=== PATIENT | female | born 1985 | race Caucasian/White ===

== ENCOUNTER → 2021-12-17 10:54 | Outpatient (BNVA) | payer MEDICAID, SELFPAY | PROVIDERS: Visit Provider Nurse Practitioner | DX: E05.90 Thyrotoxicosis, unspecified without thyrotoxic crisis or storm (principal); E03.9 Hypothyroidism, unspecified; M25.50 Pain in unspecified joint; E61.1 Iron deficiency; D51.9 Vitamin B12 deficiency anemia, unspecified; R87.619 Unspecified abnormal cytological findings in specimens from cervix uteri | CPT/HCPCS: 80053; 81003; 83550; 84439; 84443; 84481; 85025; 85651; 86140; 86800 ==

== ENCOUNTER → 2021-12-31 15:21 | Outpatient (BNVA) | payer MEDICAID, SELFPAY | PROVIDERS: Visit Provider Obstetrics & Gynecology | DX: R87.619 Unspecified abnormal cytological findings in specimens from cervix uteri (principal) | CPT/HCPCS: 88305 ==

== ENCOUNTER 2022-01-07 15:40 | Emergency (ER) | payer MEDICAID, SELFPAY ==
--- NOTE | 2022-01-07 15:47 | PC.NURSE ---
CALLED TO LOBBY NO ANSWER
--- NOTE | 2022-01-07 16:05 | ECG_ITS ---
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 Measurements Intervals [place] Rate: 64 P: 51 WA: 145 QRS: 52 QRSD: 97 T: 52 QT: 370 QTc: 384 Interpretive Statements SINUS RHYTHM INTERPRETATION BASED ON A DEFAULT AGE OF 40 YEARS No previous ECG available for comparison Electronically Signed On 01-08-2022 7:09:30 CDT by Hilario Miller M.D. [id number]
[2022-01-07 16:06] VITALS: BP 104/68; PULSE 64; RESP 16; TEMP 37.2; O2SAT 98; BMI 31.9
[2022-01-07 17:31] LABS: Add Urine Microscopic? NO; Charge for UA Resulting for Rev
[2022-01-07 17:38] LABS: Basophils % 0.3 %; Eosinophils # 0.1 10^3/uL (0.0-0.8); Eosinophils % 1.2 %; Hematocrit 39.8 % (37.0-47.0); Hemoglobin 13.2 g/dL (11.5-15.3); Lymphocytes # 1.5 10^3/uL (0.8-4.8); Lymphocytes % 24.7 %; Mean Corpuscular HGB Conc 33.2 g/dL (30.0-36.0); Mean Corpuscular Hemoglobin 32.6 pg (28.0-34.0); Mean Corpuscular Volume 98.3 fl (81-99); Mean Platelet Volume 10.3 fL (7.4-10.4); Monocytes # 0.5 10^3/uL (0.2-0.9); Monocytes % 8.3 %; Neutrophils # 3.84 10^3/uL (1.8-7.7); Neutrophils % 65.3 %; Nucleated Red Blood Cells % 0 %; Platelet Count 204 10^3/cmm (130-400); Red Blood Count 4.05 10^6/uL (4.1-5.3); Red Cell Distribution Width 12.1 % (12.1-15.1); White Blood Count 5.9 10^3/uL (4.0-10.0)
[2022-01-07 17:42] LABS: Bilirubin Urine Neg (Negative); Blood Urine Neg (Negative); Glucose Urine UA Norm (Normal); Ketones Urine Negative (Negative); Leukocyte Esterase Urine Negative (Negative); Nitrate Urine Negative (Negative); Protein Urine Neg (Negative); Specific Gravity, Urine 1.015 (1.005-1.030); Urine Appearance Clear (CLEAR); Urine Color Yellow (Yellow); Urobilinogen Urine Norm (Negative); pH Urine 7 (5-7)
[2022-01-07 18:21] LABS: Troponin(5th) Baseline 6 ng/L (0-10)
[2022-01-07 18:27] LABS: Anion Gap 12.1 (5-19); Blood Urea Nitrogen 11 mg/dL (6-20); Calcium 9.5 mg/dL (8.5-10.5); Carbon Dioxide 28 mmol/L (22-29); Chloride 101 mmol/L (98-107); Glomerular Filtration Rate 140.4 mL/min (90-130); Glucose 83 mg/dL (65-115); Osmolality Calculated 283 mOsm/kg (285-295); Potassium 4.1 mmol/L (3.5-5.1); Sodium 137 mmol/L (136-145); Thyroid Stimulating Hormone 1.92 uIU/mL (0.27-4.20)
[2022-01-07 20:55] LABS: Free T4 Free Thyroxine 0.88 ng/dL (0.82-1.77)
== END 2022-01-07 18:04 | disposition left against medical advice (07) ==
PROVIDERS: Emergency Medicine; Emergency Provider Family Medicine
DX: Z53.21 Procedure and treatment not carried out due to patient leaving prior to being seen by health care provider (principal)
CPT/HCPCS: 80048; 81003; 84439; 84443; 84484; 85025; 93005

== ENCOUNTER → 2022-02-13 10:45 | Outpatient (BNVA) | payer MEDICAID, SELFPAY | PROVIDERS: Visit Provider Nurse Practitioner | DX: E06.3 Autoimmune thyroiditis (principal); E55.9 Vitamin D deficiency, unspecified; D51.9 Vitamin B12 deficiency anemia, unspecified | CPT/HCPCS: 82306; 82607; 84439; 84443; 84481 ==

== ENCOUNTER → 2022-03-15 11:53 | Outpatient (BNVA) | payer MEDICAID, SELFPAY | PROVIDERS: PCP Nurse Practitioner Family; Visit Provider Nurse Practitioner Family | DX: M25.571 Pain in right ankle and joints of right foot (principal); M79.671 Pain in right foot; S82.141A Displaced bicondylar fracture of right tibia, initial encounter for closed fracture; X58.XXXA Exposure to other specified factors, initial encounter; M25.561 Pain in right knee | CPT/HCPCS: 73562; 73610; 73630 ==

== ENCOUNTER → 2022-04-24 14:30 | Outpatient (BNVA) | payer MEDICAID, SELFPAY | PROVIDERS: PCP Nurse Practitioner Family; Visit Provider Obstetrics & Gynecology | DX: Z01.419 Encounter for gynecological examination (general) (routine) without abnormal findings (principal) | CPT/HCPCS: 87624 ==

== ENCOUNTER → 2022-05-13 13:54 | Outpatient (BNVA) | payer MEDICAID, SELFPAY | PROVIDERS: PCP Nurse Practitioner Family; Visit Provider Nurse Practitioner | DX: E06.3 Autoimmune thyroiditis (principal); E55.9 Vitamin D deficiency, unspecified; Z28.21 Immunization not carried out because of patient refusal | CPT/HCPCS: 82306; 84443 ==

== ENCOUNTER 2022-05-28 12:17 | Outpatient (CLI) | payer MEDICAID, SELFPAY ==
--- NOTE | 2022-05-28 12:15 | USCV_ITS ---
Lesly Yung Age: 37 Gender: F : 1985 Exam Date: 05/28/2022 13:02 Ordering Phys: Meli Headley MD ([email or web address]) Technologist: WILLIAM [place] [facility] [place]: CHEST PAIN WITH PALPITATIONS BP: 120 / 68 HR: 63 Rhythm: Sinus Technical Quality: Adequate MEASUREMENTS (Male / Female) Normal Values 2D ECHO LVOT Diameter 2.0 cm LV Ejection Fraction MOD 2C 67.0 % LV Ejection Fraction 2C AL 68.6 % LA Diameter 2.7 cm LA Width 2.7 cm LA Height 3.8 cm RA Width 3.0 cm RA Height 4.6 cm Aorta at Sinotubular Diameter 2.4 cm IVC Diameter 1.4 cm M-MODE Aortic Annulus Diameter 2.5 cm LA Ao Ratio MM 1.0 MV E Point Septal Separation 0.4 cm DOPPLER AV Peak Velocity 132.0 cm/s LVOT Peak Velocity 110.0 cm/s AV Area Cont Eq vti 2.3 cm squared AV Area Cont Eq pk 2.6 cm squared MV Peak Velocity 129.0 cm/s MV Area PHT 3.9 cm squared Mitral E to A Ratio 1.4 MV E' Velocity 58.0 cm/s Mitral E to MV E' Ratio 6.8 Mitral E to LV E' Lateral Ratio 6.2 Mitral E to LV E' Septal Ratio 7.6 TR Peak Velocity 213.4 cm/s TR Peak Gradient 18.2 mmHg TR Mean Velocity 167.2 cm/s TR Mean Gradient 11.5 mmHg TR Velocity Time Integral 64.1 cm TV Peak E Velocity 56.0 cm/s Right Atrial Pressure 3.0 mmHg Pulmonary Artery Systolic Pressu 21.2 mmHg PV Peak Velocity 109.0 cm/s RV Acceleration Time 0.2 s RV Ejection Time 0.3 s RV AcT/ET 0.5 FINDINGS Left Ventricle Normal left ventricular size, systolic function and wall thickness, with no regional wall motion abnormalities. Left ventricular ejection fraction is estimated at 65 %. Normal diastolic function. Right Ventricle Normal right ventricular size and systolic function. Right ventricular systolic pressure 23 mmHg. Right Atrium Normal right atrial size. Left Atrium Normal left atrial size. Mitral Valve Mildly thickened mitral valve. Bowing of bilateral mitral leaflet without any prolapse. No mitral valve stenosis. No significant mitral valve regurgitation. Aortic Valve Structurally normal trileaflet aortic valve. No aortic valve stenosis. No aortic valve regurgitation. Tricuspid Valve Structurally normal tricuspid valve. No tricuspid valve stenosis. Mild tricuspid valve regurgitation. Pulmonic Valve Structurally normal pulmonic valve. No pulmonary valve stenosis. No pulmonary valve regurgitation. Pericardium No pericardial effusion. Aorta Normal size aortic root and proximal ascending aorta. IVC Normal IVC dimension with >50% respiratory change of the inferior vena cava. CONCLUSIONS 1. Normal left ventricular size, systolic function and wall thickness, with no regional wall motion abnormalities. Left ventricular ejection fraction is estimated at 65 %. Normal diastolic function. 2. Mild tricuspid valve regurgitation. 3. Bowing of bilateral mitral leaflet. No significant mitral valve regurgitation. 4. No prior similar studies to compare. Meli Headley MD (Electronically Signed) Final Date: 31 May 2022 16:13 S
== END 2022-05-28 12:18 | disposition home or self-care (01) ==
LOC: RAD 12:19
PROVIDERS: PCP Nurse Practitioner; Visit Provider Internal Medicine Cardiovascular Disease
DX: R07.9 Chest pain, unspecified (principal); R00.2 Palpitations; I08.1 Rheumatic disorders of both mitral and tricuspid valves
CPT/HCPCS: 93306

== ENCOUNTER 2022-06-07 12:54 | Outpatient (CLI) | payer MEDICAID, SELFPAY ==
--- NOTE | 2022-06-07 | ECG_ITS ---
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 Interpretive Statements NAME OF STUDY: TREADMILL STRESS TEST INDICATION: Chest Pain Baseline blood pressure of 107/81 mm Hg, heart rate of 70 beats per minute. EKG showed normal sinus rhythm with normal ST-Ts. ??? The patient exercised for 7 minutes and 2 seconds on a [standard Pascual protocol]. Patient attained a maximum heart rate of 165 beats per minute( 89 % of the maximum predicted heart rate) with a blood pressure at the peak exercise of of 261/95 mm Hg. The EKG at the peak exercise revealed sinus tachycardia with no significant ST and T wave changes. Patient did not have any chest pain or any significant arrhythmis with the exercise. The study was terminated due to maximal effort. During the recovery phase, there were no new changes. ??? Blood pressure at the end of the recovery phase was 135/83 mm Hg with a heart rate of 92 beats per minute. ??? CONCLUSION: 1. Normal EKG response to treadmill exercise. 2. No exercise-induced chest pain or cardiac arrhythmia. 3. Good exercise tolerance, attained a maximum of 10.2 METs. 4. Baseline normal blood pressure with hypertensive response to exercise. Electronically Signed On 06-15-2022 8:30:22 COUNTER ATTENDANT by Meli Headley M.D. [id number]
[2022-06-07 13:16] VITALS: BMI 30.9
[2022-06-07 13:42] VITALS: BP 135/83; PULSE 94
== END 2022-06-07 12:55 | disposition home or self-care (01) ==
LOC: CDL 12:55
PROVIDERS: PCP Nurse Practitioner; Visit Provider Internal Medicine Cardiovascular Disease
DX: R07.9 Chest pain, unspecified (principal)
CPT/HCPCS: 93017

== ENCOUNTER 2022-06-18 11:14 | Outpatient (CLI) | payer MEDICAID, SELFPAY ==
--- NOTE | 2022-06-18 11:45 | MR_ITS ---
WS: [id number] MRI RIGHT KNEE HISTORY: pain COMPARISON: RIGHT knee radiograph 03/15/2022 Anterior cruciate ligament: Loss of the normal signal in the ACL. The ACL is thinned and of intermedi ate signal centrally. There is fluid in the mid body of the distal ACL. Although no full-thickness te ar there is probably at least a partial tear. Posterior cruciate ligament: Intact. Medial collateral ligament: Intact. Posterior lateral corner structures: Intact. Medial menisci: Intact. Normal signal, size and shape. Lateral meniscus: Intact. Normal signal, size and shape. Extensor mechanism: Distal quadriceps tendon and patellar tendons are intact. Fluid and soft tissue: No joint effusion. No Castaneda's cyst. Osseous and articular structures: Patellofemoral compartment: Normal. Medial compartment: No significant compartment. There is an osteochondral lesion with bone fragment m easuring 10 x 9 mm involving the posterior medial tibial plateau. There is mild elevation of the bone fragment causing distortion of the posterior medial meniscus. No evidence for acute marrow edema. Th is does not appear to be an acute osteochondral lesion. Lateral compartment: Negative. MR/MR knee RT wo con* [id number] IMPRESSION: 1. Chronic appearing 10 x 9 mm osteochondral lesion with mild displacement fro m the posterior medial tibial plateau. 2. Mild thinning of the ACL. No full-thickness tear. There is a small amount o f fluid in the distal ACL suggesting intrasubstance tear. 3. No meniscal tear identified.
== END 2022-06-18 11:15 | disposition home or self-care (01) ==
LOC: RAD 11:16
PROVIDERS: PCP Nurse Practitioner; Visit Provider Orthopaedic Surgery
DX: M25.561 Pain in right knee (principal)
CPT/HCPCS: 73721

== ENCOUNTER → 2022-07-22 16:43 | Outpatient (BNVA) | payer MEDICAID, SELFPAY | PROVIDERS: PCP Nurse Practitioner; Visit Provider Nurse Practitioner Family | DX: F41.8 Other specified anxiety disorders (principal); E06.3 Autoimmune thyroiditis; M25.531 Pain in right wrist; W19.XXXA Unspecified fall, initial encounter; Y92.009 Unspecified place in unspecified non-institutional (private) residence as the place of occurrence of the external cause | CPT/HCPCS: 73110; 80053; 80061; 84443 ==

== ENCOUNTER → 2022-08-05 15:38 | Outpatient (BNVA) | payer MEDICAID, SELFPAY | PROVIDERS: PCP Nurse Practitioner; Visit Provider Nurse Practitioner Family | DX: R07.9 Chest pain, unspecified (principal) | CPT/HCPCS: 80048 ==

== ENCOUNTER → 2022-08-20 14:56 | Outpatient (BNVA) | payer MEDICAID, SELFPAY | PROVIDERS: PCP Nurse Practitioner; Visit Provider Nurse Practitioner Family | DX: F31.9 Bipolar disorder, unspecified (principal); E06.3 Autoimmune thyroiditis; F41.8 Other specified anxiety disorders; M62.838 Other muscle spasm | CPT/HCPCS: 80053 ==

== ENCOUNTER 2022-08-22 12:26 | Outpatient (CLI) | payer MEDICAID, SELFPAY ==
--- NOTE | 2022-08-22 13:00 | US_ITS ---
WS: [id number] THYROID ULTRASOUND HISTORY: mitchell's thyroiditis COMPARISON: None available. Right lobe: 1.5 cm x 1.5 cm x 4.4 cm (w x ap x l). Volume: 5.0 cm3. Normal size gland but there is mild coarsened echotexture and increased vascularity. No nodules are i dentified. Small RIGHT submandibular lymph nodes are normal. Left lobe: 1.7 cm x 1.2 cm x 4.3 cm (w x ap x l). Volume: 4.6 cm3. Normal size gland with mild coarsened echotexture. Slight increased vascularity. Benign cervical erickson n lymph nodes. Isthmus: 0.4 cm. US/US thyroid [id number] IMPRESSION: 1. Mildly coarse echotexture and increased vascularity can be seen with Hashim evan's thyroiditis. 2. No nodules are identified.
== END 2022-08-22 12:27 | disposition home or self-care (01) ==
LOC: RAD 12:28
PROVIDERS: PCP Nurse Practitioner Family; Visit Provider Nurse Practitioner Family
DX: E06.3 Autoimmune thyroiditis (principal)
CPT/HCPCS: 76536

== ENCOUNTER 2022-09-16 08:44 | Outpatient (CLI) | payer MEDICAID, SELFPAY ==
--- NOTE | 2022-09-16 08:57 | XR_ITS ---
WS: [id number] EXAMINATION: XR cervical spine 3V* [id number] Cervical spine 3 views REASON FOR EXAM: Abnormal nerve conduction study paresthesia right upper ext COMPARISON: None available. FINDINGS: There is no sign of acute fracture or subluxation. Vertebral body heights and intervertebral disc sp aces are maintained. The cervical bony alignment and osseous densities appear normal. There is no p revertebral soft tissue change. Small bilateral cervical ribs. XR/XR cervical spine 3V* [id number] IMPRESSION: No acute osseous abnormality.
== END 2022-09-16 08:45 | disposition home or self-care (01) ==
LOC: RAD 08:45
PROVIDERS: PCP Nurse Practitioner Family; Visit Provider Nurse Practitioner Family
DX: R20.2 Paresthesia of skin (principal); R94.131 Abnormal electromyogram [EMG]
CPT/HCPCS: 72040

== ENCOUNTER → 2022-10-28 14:00 | Outpatient (BNVA) | payer MEDICAID, SELFPAY | PROVIDERS: PCP Nurse Practitioner Family; Visit Provider Obstetrics & Gynecology | DX: Z01.419 Encounter for gynecological examination (general) (routine) without abnormal findings (principal) | CPT/HCPCS: 87624 ==

== ENCOUNTER → 2022-10-29 08:15 | Outpatient (BNVA) | payer MEDICAID, SELFPAY | PROVIDERS: PCP Nurse Practitioner Family; Visit Provider Obstetrics & Gynecology | DX: R87.619 Unspecified abnormal cytological findings in specimens from cervix uteri (principal) | CPT/HCPCS: 88305 ==

== ENCOUNTER → 2022-11-26 13:41 | Outpatient (BNVA) | payer MEDICAID, SELFPAY | PROVIDERS: PCP Nurse Practitioner Family; Visit Provider Obstetrics & Gynecology | DX: N87.9 Dysplasia of cervix uteri, unspecified (principal); N93.9 Abnormal uterine and vaginal bleeding, unspecified; R19.00 Intra-abdominal and pelvic swelling, mass and lump, unspecified site | CPT/HCPCS: 76830 ==

== ENCOUNTER 2022-12-11 07:55 | Outpatient (CLI) | payer MEDICAID, SELFPAY ==
--- NOTE | 2022-12-11 08:45 | MR_ITS ---
WS: [id number] MRI BRAIN WITHOUT CONTRAST HISTORY: G43.909 - Migraine, unspecified, not intractable, without... COMPARISON: None available. TECHNIQUE: Diffusion imaging, multiplanar T1, T2 and FLAIR imaging obtained. Patient refused IV contrast. No evidence for acute infarct or hemorrhage. Suero-white matter differentiation is normal. No prior infarct. There are several subcortical and white matter tiny foci of increased T2 and FLAIR signal throughout the white matter. Typically seen for a patient of this age. No associated hemorrhag e. No edema. These tiny foci of increased signal predominantly in the frontal and parietal lobes. Ventricles and extra-axial spaces are normal. No inferior displacement of cerebellar tonsils. The sella turcica and pituitary gland are unremarkabl e. Dural venous sinuses and [place] demonstrate no abnormality on this unenhanced studies. Norm al flow voids. Paranasal sinuses: Very minimal mucoperiosteal thickening. No air-fluid levels. Mastoid air cells: Normal. Calvarium and scalp: Intact. MR/MR head wo con* [id number] IMPRESSION: 1. No acute infarct or hemorrhage. 2. Numerous T2 and FLAIR signal hyperintensities within the white matter, pred ominantly frontal lobes. More than typically seen for a patient of this age. Th jenny are nonspecific but can be seen with migraines, hypertension, small vessel ischemic disease, smoking and diabetes.
--- NOTE | 2022-12-11 11:15 | USCV_ITS ---
LeslyYung Age: 37 Gender: F : 1985 Exam Date: 12/11/2022 08:19 Ordering Phys: Diana Reynaga MD Technologist: HUGO Exam Location: [facility] – [place] Indication: MIGRAINES Risk Factors: Previous Vascular Surgery: Right Brachial BP: / Left Brachial BP: / Right Left Velocity (cm/s) Spectral Plaque Velocity (cm/s) Spectral Plaque Syst/Diast Broadening Syst/Diast Broadening 81.50/ 26.90 Prox CCA 82.00 / 29.90 62.50/ 18.70 Mid CCA 88.90 / 35.00 67.10/ 26.60 Distal CCA 70.10 / 27.30 48.60/ 20.30 Prox ICA 73.00 / 34.80 68.40/ 32.20 Mid ICA 82.20 / 40.80 77.60/ 41.40 Distal ICA 77.60 / 36.80 50.10 ECA 64.40 0.95 ICA/CCA 0.92 Antegrade Vertebral Antegrade 60.50/ 21.70 cm/s 44.00/ 16.40 cm/s Tri Subclavian Tri 117.0 128.8 0 0 CONCLUSIONS Right ICA stenosis <50%. Left ICA stenosis <50%. Normal antegrade Doppler flow noted in the right vertebral artery. Normal antegrade Doppler flow noted in the left vertebral artery. Joesph Slade MD (Electronically Signed) Final Date: 11 December 2022 10:51 S
== END 2022-12-11 07:56 | disposition home or self-care (01) ==
PROVIDERS: PCP Nurse Practitioner Family; Visit Provider Psychiatry & Neurology Neurology
DX: G43.909 Migraine, unspecified, not intractable, without status migrainosus (principal); M62.838 Other muscle spasm; W19.XXXA Unspecified fall, initial encounter; Y92.009 Unspecified place in unspecified non-institutional (private) residence as the place of occurrence of the external cause; I65.23 Occlusion and stenosis of bilateral carotid arteries
CPT/HCPCS: 70551; 93880

== ENCOUNTER → 2022-12-13 11:58 | Outpatient (BNVA) | payer MEDICAID, SELFPAY | PROVIDERS: PCP Nurse Practitioner Family; Visit Provider Nurse Practitioner Family | DX: F41.8 Other specified anxiety disorders (principal); E61.1 Iron deficiency; D51.9 Vitamin B12 deficiency anemia, unspecified; E55.9 Vitamin D deficiency, unspecified; Z13.220 Encounter for screening for lipoid disorders; W57.XXXA Bitten or stung by nonvenomous insect and other nonvenomous arthropods, initial encounter | CPT/HCPCS: 80053; 80061; 83550; 86618; 86666; 86757 ==

== ENCOUNTER 2022-12-24 10:44 | Day surgery (SDC) | payer MEDICAID, SELFPAY ==
[2022-12-23 10:42] VITALS: BMI 29.0
[2022-12-24] VITALS (9 sets, daily range): BP systolic 102–115; BP diastolic 10–90; PULSE 44–66; RESP 16–18; TEMP 36.1; O2SAT 97–100
[2022-12-24 11:06] LABS: OR HCG Qualitative Urine Negative (Negative)
[2022-12-24] MEDS: sodium chloride 0.9% 1,000 ML 30 ML IV (11:17)
--- NOTE | 2022-12-24 11:22 | W.PM.OPSUD ---
Surgery/Procedure H&P Update DATE OF PROCEDURE: December 24, 2022 DATE H&P PERFORMED: 12/19/22 H&P UPDATE INFORMATION: I have reviewed H&P completed within last 30 days, I have examined patient prior to procedure and No changes to prior documentation PREOP DIAGNOSIS: uterine mass, history of abnormal pap PLANNED PROCEDURE: Operation Date: 12/24/22 12:20 Proposed Procedures p Hysteroscopy, dilation and curettage with Myosure [id number], N85.8(Not Applicable) - Stephanie Horner MD s Dilation And Curettage (D&C)(Not Applicable) - Stephanie Horner MD Related Problem List Diagnoses (1) Uterine mass:
[2022-12-24] MEDS: scopolamine 1.5 Patch 1 PATCH TRANSDERMA (11:28)
--- NOTE | 2022-12-24 12:38 | P.ANESASSM_ITS ---
Pre-Anesthetic Assessment Height/Weight: Height 1.64 m Weight 78.018 kg O2 Del Method Room Air 12/24/22 11:10 Preop Diagnosis: uterine mass, history of abnormal pap Operation Date: 12/24/22 12:20 Proposed Procedures p Hysteroscopy, dilation and curettage with Myosure [id number], N85.8(Not Applicable) - Stephanie Horner MD s Dilation And Curettage (D&C)(Not Applicable) - Stephanie Horner MD Familial anesthetic complications: none Was Beta Patrick taken within 24 hours: N/A Was Clonidine taken within 24 hours: N/A Last intake: Intake Last Liquid Date 12/24/22 Last Liquid Time 01:00 Last Solid Date 12/24/22 Last Solid Time 01:00 Social No alcohol and No tobacco Exam alert, oriented x 3, clear to auscultation bilaterally and regular rate & rhythm Airway Submandibular: within normal limits Cervical ROM: within normal limits Mallampati: Class II Dentition: full CV/HEM Anemia Metabolic Thyroid Disease Neuropsych Anxiety, Depression and Headache Anesthetic Plan ASA status: 3 Anesthesia: General Medications/Allergies Home Medications Medication Instructions Recorded Confirmed Last Taken Type quetiapine 50 mg tablet 50 mg PO .qhs 30 days #30 tabs 11/28/22 12/23/22 Unknown Rx rimegepant 75 mg disintegrating 75 mg PO .every other day #60 tabs 11/28/22 12/23/22 12/09/22 Rx tablet (Nurtec ODT) cyanocobalamin (vitamin B-12) 10,000 mcg (10 mL) IM .monthly #10 12/02/22 12/23/22 12/09/22 Rx 1,000 mcg/mL injection solution mL ergocalciferol (vitamin D2) 1,250 1,250 mcg PO .weekly #4 caps 12/13/22 12/23/22 12/23/22 Rx mcg (50,000 unit) capsule magnesium oxide 400 mg PO BID 90 days #180 tabs 12/13/22 12/23/22 12/23/22 Rx thyroid (pork) 15 mg tablet 15 mg PO DAILY 30 days #30 tabs 12/13/22 12/23/22 12/23/22 Rx ([place] Thyroid) Allergies Allergy/AdvReac Type Severity Reaction Status Date / Time Bleach (Sodium Hypochlorite) Allergy Intermediate ALGY-Hives Verified 12/23/22 10:40 topiramate AdvReac Unknown Verified 12/23/22 10:40 maxalt AdvReac Severe ADR-Agitate Uncoded 12/19/22 13:09 d Current Medications Generic Name Dose Route Start Last Admin Trade Name Freq PRN Reason Stop Dose Admin Sodium Chloride 1,000 mls @ 30 mls/hr 12/24/22 11:00 12/24/22 11:17 Sodium Chloride 0.9% IV 12/25/22 10:59 30 mls/hr .Q24H AAMIR Administration PFSH Anesthesia Medical History Anxiety with depression B12 deficiency anemia Bipolar affective, manic Bradycardia 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
[2022-12-24] MEDS: ceFAZolin 2,000 MG in sodium chloride 0.9% (plus) 50 ML 100 MG IV (13:51)
--- NOTE | 2022-12-24 14:35 | PM.OP ---
Operative Report Date of procedure: December 24, 2022 Pre-op diagnosis: Preop Diagnosis uterine mass, history of abnormal pap Post-op diagnosis: same Post-op findings: normal appearing uterus Procedure done: hysteroscopym, dilation and curettage with myosure Specimens removed/disposition: endometrial curettings to pathology Surgeon: Stephanie Horner Anesthesia: General Estimated blood loss (mL): 5 IV fluids (mL): 500 Complications: none Findings: 8 week sized uterus 485 ml hysteroscopy deficit Condition: stable Disposition: PACU Procedure: The patient was taken to the operating room where monitored anesthesia was administered and to be adequate. She was prepped and draped in the normal sterile fashion in the dorsal lithotomy position in [facility]. A weighted speculum was placed into the vagina and the anterior lip of the cervix grasped with a single-tooth tenaculum. The uterus was sounded to 8 cm. The cervix was dilated to 16 Setswana. The hysteroscope was advanced into the endometrial cavity. There was green tissue visualized. The MyoSure device was activated and the tissue was removed. The endometrium appeared normal after the MyoSure. Pictures were taken pre and post procedure. All instruments were removed. The patient tolerated the procedure well. Sponge lap and needle counts were correct x3. She was taken to the recovery room in stable condition.
--- NOTE | 2022-12-24 14:43 | P.DS_ITS ---
Discharge Providers Date of Admission: 12/24/22 Date of Discharge: December 24, 2022 Attending Provider at Admission: Dr. Horner Attending Provider at Discharge: Stephanie Horner MD Primary Care Provider: She Jauregui NP Diagnoses at Discharge Discharge Diagnosis (1) Uterine mass: Status: Acute Reason for Visit Reason for Visit: 77987 N85.8 Hospital Course Hospital Course The patient was admitted for surgery. She did well postoperatively and was read y for discharge Discharge Data Studies Completed and Pending Pending at discharge Category Date Time Status Pathology: Surgical [PTH] Routine Pth 12/24/22 14:37 Ordered Laboratory Results Urine HCG, Qual Negative (Negative) 12/24/22 11:04 Vitals Last Vital Signs O2 Del Method Room Air 12/24/22 11:10 Discharge Plan Discharge Patient Disposition: Home Condition: Stable Prescriptions: Continued quetiapine 50 mg tablet 50 mg PO .qhs 30 Days Qty: 30 3RF Nurtec ODT 75 mg tablet,disintegrating 75 mg PO .every other day Qty: 60 2RF ergocalciferol (vitamin D2) 1,250 mcg (50,000 unit) capsule 1,250 mcg PO .weekly Qty: 4 3RF magnesium oxide 400 mg magnesium tablet 400 mg PO BID 90 Days Qty: 180 1RF [place] Thyroid 15 mg tablet 15 mg PO DAILY 30 Days Qty: 30 2RF cyanocobalamin (vitamin B-12) 1,000 mcg/mL solution 10,000 mcg IM .monthly Qty: 10 6RF Discharge Orders: Discharge Order (Routine); Ordered 12/24/22 Ordered By: Stephanie Horner Discharge Attestations Time Spent in Discharge Care*: less than 30 min Quality Metrics Clinical Quality Measures [ No reported AMI, CVA or VTE this stay] Coding Level of Care Code Acute Code for Chg Fwd Diagnoses Uterine mass N85.8
--- NOTE | 2022-12-24 16:06 | ANE.PACU2 ---
Inpatient post-anesthesia follow up: Airway intact: Yes Vital signs: Temperature 97 F Pulse Rate 56 Respiratory Rate 18 Blood Pressure 108/70 Pulse Oximetry 100 Oxygen Delivery Me thod Room Air Oxygen Flow Rate Fraction of Inspir ed Oxygen Hydration adequate: Yes Nausea and vomiting: No Pain level: 3 Mental status: Baseline
== END 2022-12-24 16:09 | disposition home or self-care (01) ==
PROVIDERS: Anesthesiology; PCP Nurse Practitioner Family; Visit Provider Obstetrics & Gynecology
PROC: 0UDB8ZZ Extraction of Endometrium, Via Natural or Artificial Opening Endoscopic (ICD-10-PCS; CPT 58558; principal; 2022-12-24 12:10)
PROC: (CPT 58120; 2022-12-24 12:10)
DX: N85.8 Other specified noninflammatory disorders of uterus (principal); E03.9 Hypothyroidism, unspecified
CPT/HCPCS: 58558; 81025; 84703; 88305; J0131; J0690; J1100; J1200; J1885; J2250; J2405; J2704; J3010; J7030

== ENCOUNTER → 2023-02-21 11:48 | Outpatient (BNVA) | payer MEDICAID, SELFPAY | PROVIDERS: PCP Nurse Practitioner Family; Visit Provider Internal Medicine | DX: E03.9 Hypothyroidism, unspecified (principal); E06.3 Autoimmune thyroiditis; D51.9 Vitamin B12 deficiency anemia, unspecified; E07.9 Disorder of thyroid, unspecified; H91.90 Unspecified hearing loss, unspecified ear; R21 Rash and other nonspecific skin eruption | CPT/HCPCS: 84439; 84443; 84480 ==

== ENCOUNTER → 2023-03-06 15:17 | Outpatient (BNVA) | payer MEDICAID, SELFPAY | PROVIDERS: PCP Nurse Practitioner Family; Visit Provider Nurse Practitioner Family | DX: M79.642 Pain in left hand (principal); E55.9 Vitamin D deficiency, unspecified; F32.9 Major depressive disorder, single episode, unspecified; E03.9 Hypothyroidism, unspecified; F31.9 Bipolar disorder, unspecified; F41.8 Other specified anxiety disorders; E06.3 Autoimmune thyroiditis; R45.86 Emotional lability; Z79.899 Other long term (current) drug therapy | CPT/HCPCS: 80053; 80061; 85651; 86140 ==

== ENCOUNTER → 2023-04-24 10:59 | Outpatient (BNVA) | payer MEDICAID, SELFPAY | PROVIDERS: PCP Nurse Practitioner Family; Visit Provider Internal Medicine | DX: E03.9 Hypothyroidism, unspecified (principal); E06.3 Autoimmune thyroiditis; E07.9 Disorder of thyroid, unspecified; H91.90 Unspecified hearing loss, unspecified ear; R21 Rash and other nonspecific skin eruption; Z01.419 Encounter for gynecological examination (general) (routine) without abnormal findings | CPT/HCPCS: 84439; 84443; 84480 ==

== ENCOUNTER → 2023-06-26 11:55 | Outpatient (BNVA) | payer MEDICAID, SELFPAY | PROVIDERS: PCP Nurse Practitioner Family; Visit Provider Nurse Practitioner Psychiatric/Mental Health | DX: Z79.899 Other long term (current) drug therapy (principal) | CPT/HCPCS: 80053; 80061; 83036 ==

== ENCOUNTER 2023-07-07 16:33 | Emergency (ER) | payer MEDICAID, SELFPAY ==
[2023-07-07 16:38] VITALS: BP 129/85; PULSE 76; RESP 14; TEMP 36.9; O2SAT 97; BMI 31.4
[2023-07-07] MEDS: famotidine 20 mg Tablet 40 MG PO (17:43)
[2023-07-07] MEDS: dexamethasone 10 mg/mL INJ IM (17:44)
[2023-07-07] MEDS: diphenhydrAMINE 50 mg Capsule PO (17:44)
[2023-07-07 17:51] VITALS: BP 122/65; PULSE 89; RESP 16; O2SAT 98
--- NOTE | 2023-07-07 18:01 | ED_ITS ---
HPI - Allergic Reaction General: Chief complaint: Allergic Reaction Stated complaint: medication errors Time Seen by Provider: 07/07/23 17:05 Source: patient Mode of arrival: ambulatory Limitations: no limitations History of Present Illness: HPI narrative: Patient presents emergency department today for evaluation treatment of concerns of allergic reaction. Patient reports that from [facility], she was started on new medication. She states she took the medication for approximately 4 days and began having symptoms of facial muscle and body muscle twitching. She also states that her airways feel like they are on fire and her mouth is painful and sore. Patient was provided cyproheptadine as well as olanzapine. Patient states she has not had any of this medication now for about 4 days but still states that she gets muscle twitching. Patient has not had vomiting but reports some loose stools. She states that her mouth is sore and has only been able to drink milk, water, and eat things like pudding and yogurt. She notified her doctor's office of this reaction as she was told to watch for muscle twitching and they told her to come to the emergency department. She states they did not tell her to take any medication for an allergic reaction. 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 HENMT: OTHER: No signs of angioedema. Mucous membranes are moist. Pharynx is mildly erythematous but no exudate. Tongue looks a bit red but no signs of any open sores. Eye: COMMON NORMALS: Equal, round and reactive pupils present, EOMs intact bilaterally and conjunctivae normal CONJUNCTIVA: Yes conjunctivae normal PUPIL: Yes Equal, round and reactive pupils present Neck/C-Spine: COMMON NORMALS: no meningeal signs and no JVD Lymph: LYMPHATIC: no lymphadenopathy noted Resp: COMMON NORMALS: normal respiratory effort, No retractions and No use of accessory muscles Cardio: COMMON NORMALS: no JVD and regular rate RATE: regular rate : COMMON NORMALS: Yes no CVA tenderness BLADDER/KIDNEY EXAM: Yes no CVA tenderness Back/Pelvis: COMMON NORMALS: no CVA tenderness, thoracic and lumbar spine normal to inspection and thoraco-lumbar ROM normal Extremity: COMMON NORMALS: normal to inspection, full ROM and no pedal edema Neuro: COMMON NORMALS: patient oriented x3 SENSORIUM/ORIENTATION: Yes alert MENINGEAL SIGNS: Yes no meningeal signs CRANIAL NERVES: Yes CN normal except as noted SPEECH: speech normal GAIT: Yes Normal gait present OTHER: No signs of twitching while in the emergency room. Patient was asked to extend her arms and hands for a while for me to monitor for signs of twitching or tremor. None visible. Skin: COMMON NORMALS: no rashes or lesions noted and turgor normal GENERAL SKIN EXAM: no rashes or lesions noted and turgor normal Course Vital Signs: Vital signs: Vital Signs Temperature 98.5 F 07/07/23 16:38 Pulse Rate 89 07/07/23 17:51 Respiratory Rate 16 07/07/23 17:51 Blood Pressure 122/65 07/07/23 17:51 Pulse Oximetry 98 07/07/23 17:51 Oxygen Delivery Me thod Room Air 07/07/23 16:38 MDM - Allergic Reaction Medical Decision Making Patient presents today for evaluation treatment of concerns for an allergic reaction to new medication. Patient is reporting symptoms continuing after approximately 4 days but, I witnessed no signs of any muscle spasm while here in the emergency department. Patient shows no signs of any airway occlusion and is not stridorous and has no wheezing. Still, we will treat for a allergic reaction based on the patient's reported symptoms. Unfortunately, as the medication was orally ingested, what ever medication is in her system may remain for several days. Discussed the need for several days of treatment for this reason. Patient needs to call her doctor first thing in the morning to discuss a follow-up. She is scheduled in 5 weeks for follow-up but I explained to her that she needs to be seen for this reaction to this medication so they can continue to monitor and discuss different medication for her treatment. Patient was given strict return precautions for signs of angioedema. She verbalizes understanding and agreement to treatment plan. Differential Diagnosis Likely allergic reaction and adverse reaction to drug; Unlikely anaphylaxis, angioedema, contact dermatitis, viral enanthem or urticaria No radiology studies performed this visit Discharge Plan Discharge Patient Disposition: Home Clinical Impression: Adverse reaction to drug Condition: Stable Prescriptions: New methylprednisolone 4 mg tablets,dose pack See Rx Instructions PO .COMPLEX Qty: 21 0RF Rx Instructions: orally per package directions Pepcid 20 mg tablet 20 mg PO BID Qty: 14 0RF Claritin 10 mg tablet 10 mg PO DAILY Qty: 10 0RF chlorhexidine gluconate 0.12 % mouthwash 15 ml buccal BID Qty: 118 0RF No Action levothyroxine 50 mcg tablet 50 mcg PO DAILY Qty: 30 1RF Rx Instructions: Take 1 tab by mouth once daily. magnesium oxide 400 mg magnesium tablet 400 mg PO BID PRN olanzapine 10 mg tablet 10 mg PO .6 pm Qty: 30 3RF Rx Instructions: Take one tablet at 6 pm cyproheptadine 4 mg tablet 4 mg PO BEDTIME Qty: 30 3RF Rx Instructions: Take one tablet at bedtime diclofenac sodium 75 mg tablet,delayed release (DR/EC) 75 mg PO BID PRN (Reason: pain) Qty: 60 0RF ergocalciferol (vitamin D2) 1,250 mcg (50,000 unit) capsule 1,250 mcg PO .weekly Qty: 4 3RF cyanocobalamin (vitamin B-12) 1,000 mcg/mL solution 10,000 mcg IM .monthly Qty: 10 6RF Emgality Pen 120 mg/mL pen injector 240 mg SUBCUT ONCE Qty: 1 0RF Emgality Pen 120 mg/mL pen injector 120 mg SUBCUT ONCE Qty: 1 3RF Botox 100 unit recon soln 155 unit IM .every 90 days Qty: 2 3RF Discharge Orders: Discharge ED (Routine); Ordered 07/07/23 Ordered By: Aleja Macdonald Referrals: She Jauregui NP [Primary Care Provider] - Discharge Diet: Usual diet Discharge Activity: Increase activity as tolerated Patient Instructions: Adverse Drug Reaction (ED) Activity Restrictions/Additional Instructions: Based on the description of symptoms you are having it does sound like you are having a drug sensitivity or reaction. The olanzapine specifically has a potential for muscle spasming and twitching as you have described. We are treating you for a reaction and will need to treat you for several days as the body can have a rebound reaction if there is any remaining medication still in your system. We treat for several days until all the medication has fully filtered out of your bloodstream. We encourage you to stay well-hydrated to help this process. Watch for any swelling of your lips, tongue, throat, any worsening difficulty breathing, profuse vomiting-these only be seen and reevaluated back in the ER. It is very important that you follow-up with your doctor to make them aware of this side effect as you most likely need a different type of medication prescribed to you. Coding Level of Care Code ED [employer] Wilhelm
== END 2023-07-07 17:51 | disposition home or self-care (01) ==
PROVIDERS: Emergency Provider Physician Assistant; PCP Nurse Practitioner Family
DX: R25.3 Fasciculation (principal); T45.0X5A Adverse effect of antiallergic and antiemetic drugs, initial encounter; T43.595A Adverse effect of other antipsychotics and neuroleptics, initial encounter; Z85.41 Personal history of malignant neoplasm of cervix uteri
CPT/HCPCS: 96372; 99284; J1100; Q0163

== ENCOUNTER → 2023-07-24 10:51 | Outpatient (BNVA) | payer MEDICAID, SELFPAY | PROVIDERS: PCP Nurse Practitioner Family; Visit Provider Nurse Practitioner Family | DX: M25.571 Pain in right ankle and joints of right foot (principal); E07.9 Disorder of thyroid, unspecified; E06.3 Autoimmune thyroiditis; E03.9 Hypothyroidism, unspecified | CPT/HCPCS: 73610; 84439; 84443; 84480; 85025 ==

== ENCOUNTER 2023-08-06 12:08 | Outpatient (CLI) | payer MEDICAID, SELFPAY ==
--- NOTE | 2023-08-06 11:45 | US_ITS ---
WS: [id number] THYROID ULTRASOUND HISTORY: thyroid dysfunction COMPARISON: 08/22/2022 Right lobe: 1.4 cm x 1.5 cm x 4.8 cm (w x ap x l). Volume: 4.9 cm3. Size of the gland has decreased. Previously described coarse echotexture has resolved. No increased v ascularity. Normal thyroid lobe. Left lobe: 1.3 cm x 1.1 cm x 3.7 cm (w x ap x l). Volume: 2.4 cm3. Size of the gland has decreased. Previously described coarse echotexture and increased vascularity aaron s decreased. No nodule. Isthmus: 0.3 cm. IMPRESSION: Normal thyroid ultrasound. Previously described abnormal echotexture and vascularity have resolved.
== END 2023-08-06 12:09 | disposition home or self-care (01) ==
LOC: RAD 12:08
PROVIDERS: PCP Nurse Practitioner Family; Visit Provider Internal Medicine
DX: E07.9 Disorder of thyroid, unspecified (principal); E06.3 Autoimmune thyroiditis; E03.9 Hypothyroidism, unspecified
CPT/HCPCS: 76536

== ENCOUNTER → 2023-08-27 10:47 | Outpatient (BNVA) | payer MEDICAID, SELFPAY | PROVIDERS: PCP Nurse Practitioner Family; Visit Provider Nurse Practitioner Psychiatric/Mental Health | DX: Z79.899 Other long term (current) drug therapy (principal) | CPT/HCPCS: 80053 ==